=== PATIENT | male | born 1960 | race Caucasian/White ===

== ENCOUNTER 2017-12-21 13:03 | Outpatient (CLI) | payer BC ==
--- NOTE | 2017-12-21 15:33 | CT ---
CT PULMONARY LUNG SCAN: 12/21/17 CLINICAL HISTORY: Nicotine dependence. FINDINGS: There is no evidence of suspicious pulmonary nodule. No mass, effusion or pneumothorax. There is scat tered granulomatous calcifications. Osseous degenerative change is present. Scattered vascular diseas e including dense coronary artery calcium present. IMPRESSION: Lung RADS - Category 1 - There are no suspicious pulmonary nodules. Continued annual screening with low dose CT in 12 months is recommended. Evidence of prior granulomatous disease. Evidence of vascular disease including coronary artery calcium. POS: [facility]
== END 2017-12-21 13:04 | disposition home or self-care (01) ==
LOC: CT 13:03
PROVIDERS: ATTEND Family Medicine
DX: Z87.891 Personal history of nicotine dependence (principal); I99.8 Other disorder of circulatory system
CPT/HCPCS: G0297

== ENCOUNTER 2018-10-03 15:08 | Outpatient (CLI) | payer BC ==
--- NOTE | 2018-10-03 15:29 | RAD ---
EXAM: 2 views of the left hip HISTORY: Left hip pain for a few months COMPARISON: None FINDINGS: 2 views of the left hip shows no evidence of acute fracture or dislocation. No degenerative changes are seen. No soft tissue swelling is present. IMPRESSION: No evidence of acute osseous abnormality.
== END 2018-10-03 15:09 | disposition home or self-care (01) ==
LOC: SCSRAD 15:08
PROVIDERS: ATTEND Family Medicine
DX: M25.552 Pain in left hip (principal)

== ENCOUNTER 2019-03-25 12:38 | Outpatient (CLI) | payer BC ==
--- NOTE | 2019-03-25 13:32 | CT ---
EXAM: CT chest without contrast per low-dose cancer screening protocol HISTORY: History of smoking and nicotine dependence COMPARISON: 12/21/2017 TECHNIQUE: Multiple contiguous axial images were obtained in a CT of the chest without contrast per l ow-dose cancer screening protocol. Sagittal and coronal reformats were performed. FINDINGS: Pulmonary nodules: A calcified granuloma is seen in the right middle lobe. No suspicious pulmonary no dules are seen. No focal infiltrates are seen. Pleural space: No pneumothorax or pleural effusion are seen. Heart: The heart is normal in size. Calcifications in the coronary arteries. Mediastinum: No hilar or mediastinal lymphadenopathy appreciated on this limited noncontrast examinat ion. Calcified nonenlarged hilar and mediastinal lymph nodes are seen. Bones: Degenerative changes in the spine.. Visualized subdiaphragmatic structures: Unremarkable. IMPRESSION: Lung RADS category 1-negative.
== END 2019-03-25 12:39 | disposition home or self-care (01) ==
LOC: CT 12:38
PROVIDERS: ATTEND Family Medicine
DX: Z87.891 Personal history of nicotine dependence (principal)
CPT/HCPCS: G0297

== ENCOUNTER 2020-06-04 15:53 | Outpatient (CLI) | payer BC | END 2020-06-04 15:54 | disposition home or self-care (01) | LOC: BICCT 15:53 | PROVIDERS: ATTEND Family Medicine | DX: Z12.2 Encounter for screening for malignant neoplasm of respiratory organs (principal); F17.291 Nicotine dependence, other tobacco product, in remission | CPT/HCPCS: 71271 ==

== ENCOUNTER 2024-07-03 09:46 | Outpatient (CLI) | payer MEDICARE | END 2024-07-03 09:47 | disposition home or self-care (01) | LOC: CT 09:46 | PROVIDERS: ATTEND Family Medicine | DX: Z12.2 Encounter for screening for malignant neoplasm of respiratory organs (principal); F17.291 Nicotine dependence, other tobacco product, in remission; M54.16 Radiculopathy, lumbar region; M79.651 Pain in right thigh; M79.652 Pain in left thigh | CPT/HCPCS: 71271; 93922 ==